=== PATIENT | female | born 1955 | race Caucasian/White ===

== ENCOUNTER → 2021-03-12 | Outpatient (CLI) | payer OTHER ==
[~2021-03-12] MED LIST: LISINOPRIL10 MG PO; METOPROLOL TART25 MG PO; PROBIOTIC1 EAC7 PO; TRAMADOL 50 MG50 MG PO; TRAZODONE HCL100 MG PO; TRIAMTERENE/HCT1 CA1 PO; VENLAFAXINE HC150 M1 PO; ZANAFLEX4 M2 PO
[2021-03-12 10:42] LABS: URINE BILIRUBIN NEGATIVE (Negative); URINE BLOOD NEGATIVE (Negative); URINE CLARITY CLEAR; URINE COLOR YELLOW; URINE GLUCOSE-RANDOM* NEGATIVE (Negative); URINE KETONES NEGATIVE (Negative); URINE LEUKOCYTES-REFLEX NEGATIVE (Negative); URINE NITRITE-REFLEX NEGATIVE (Negative); URINE PROTEIN (DIPSTICK) NEGATIVE (Negative); URINE UROBILINOGEN 0.2 E.U./dl (0.2-1.0)
[2021-03-12 10:50] LABS: HEMATOCRIT 41.2 % (37.0-47.0); MCH 31.5 pg (26.0-34.0); MCV 92.5 fL (80.0-100.0); RBC 4.46 mil/uL (4.20-5.00); RDW 13.4 % (10.5-14.5); WBC 5.4 thou/uL (4.0-11.0)
--- NOTE | 2021-03-12 10:50 | EKG ---
[place] [address] [facility] [place] [address] ELECTROCARDIOGRAM REPORT Name: TYLERSHEILA Room #: ZULEMA Pierre#: [id number] Admission: 03/12/21 Attend Phys: Gayle Resendez DO Discharge: Date of : 57 Report #: [id number] [facility] Test Date: 2021-03-12 Test Time: 10:37:54 Pat Name: SHEILA SCOTT Department: Room: Gender: F Recruitment Consultant: BERTA MARCUM : 1955 Requested By: Kvng Daily Order Number: [id number] MD: Berhane Barrios Measurements Intervals [place] Rate: 68 P: 46 OK: 179 QRS: -22 QRSD: 102 T: 33 QT: 432 QTc: 460 Interpretive Statements Sinus rhythm Borderline left axis deviation No previous ECG available for comparison Electronically Signed On 03-12-2021 10:50:42 [employer]PERVIS[employer] by Berhane Barrios [email or web address] <ELECTRONICALLY SIGNED> By: Berhane Barrios MD, [facility] 03/12/[address] [facility] Berhane Barrios MD, FACC /EPI
[2021-03-12 11:05] LABS: APTT 26.1 Seconds (24.5-32.8); INR 0.94; PROTIME 10.3 Seconds (10.5-12.1)
[2021-03-12 11:06] LABS: ALBUMIN 3.9 g/dL (3.4-5.0); CALCIUM 9.3 mg/dL (8.5-10.1); CREATININE 0.7 mg/dL (0.6-1.0); POTASSIUM 3.2 mmol/L (3.5-5.1); TOTAL BILIRUBIN 0.3 mg/dL (0.2-1.0); TOTAL PROTEIN 6.9 g/dL (6.4-8.2)
== END ==
LOC: PAC
PROVIDERS: Specialist; ATTEND Student in an Organized Health Care Education/Training Program
DX: I65.29 Occlusion and stenosis of unspecified carotid artery (principal)

== ENCOUNTER → 2021-03-15 | Outpatient (CLI) | payer OTHER | LOC: LAB 03-12 11:52 | PROVIDERS: ATTEND Student in an Organized Health Care Education/Training Program | DX: Z01.812 Encounter for preprocedural laboratory examination (principal); Z20.822 Contact with and (suspected) exposure to COVID-19 ==

== ENCOUNTER 2021-03-20 10:26 | Observation (INO) | payer OTHER ==
[~2021-03-20] VITALS: Ht 162.6 cm; Wt 77.2 kg
[2021-03-20 11:39] VITALS: BP 131/80
[2021-03-20 17:06] VITALS: BP 124/66
[2021-03-20 17:17] VITALS: BP 129/63
[2021-03-20 17:33] VITALS: BP 126/66
[2021-03-20 18:03] VITALS: BP 122/68
--- NOTE | 2021-03-20 18:05 | NUR ---
ASSUMED CARE OF PT AT 1700 FROM PACU. PT IS A/OX4 AND HAS NO COMPLAINTS AT THIS TIME. COMPLETED ADMISSION EDUCATION, HX AND SEPSIS. RNAMIRAH TO COMPLETE SYSTEM ASSESSMENT AND CARE PLAN. FALL PRECAUTIONS ARE IN PLACE. CALL LIGHT AND OTHER NEEDS ARE IN REACH. MEDS AND TX GIVEN NEEDED AND SCHEDULED. WILL MONITOPR AND NOTE ANY CHANGES.
[2021-03-20 19:30] VITALS: BP 106/56
--- NOTE | 2021-03-21 01:36 | NUR ---
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
[2021-03-21 07:18] VITALS: BP 102/58
--- NOTE | 2021-03-21 10:05 | NUR ---
ASSUMED PT CARE THIS AM. PT IS ALERT & ORIENTED X4. PT HAS IV SITE ON RFA SALINE LOCKED. PT IS UP STAND BY ASSIST. PT C/O OF PAIN AND GIVEN PAIN MEDICATION PER PT REQUEST. PT IS ON ROOM AIR. PT TOLERATED DIET AND MEDICATION WELL. PT HAS AQUACEL DRESSING ON THE BACK C/D/I. PT ON THE BED, BED ON THE LOWEST POSITION, SIDE RAILS UP, CALL LIGHT WITHIN REACH. WILL CONTINUE TO MONITOR PT. FOLLOW POC.
[2021-03-21 10:58] LABS: ABSOLUTE NEUTROPHILS 7.8 thou/uL (1.4-8.2); BASOPHILS 0.2 % (0.0-2.0); HEMATOCRIT 40.9 % (37.0-47.0); HEMOGLOBIN 13.2 gm/dL (12.0-15.0); LYMPHOCYTES 12.7 % (24.0-44.0); MCH 30.7 pg (26.0-34.0); MCHC 32.3 g/dL (28.0-37.0); MONOCYTES 4.7 % (1.0-8.0); PLATELET COUNT 246 thou/uL (150-400); POLYS 82.4 % (36.0-66.0); RDW 13.5 % (10.5-14.5); WBC 9.4 thou/uL (4.0-11.0)
[2021-03-21 11:19] LABS: CALCIUM 9.2 mg/dL (8.5-10.1); CREATININE 0.8 mg/dL (0.6-1.0); POTASSIUM 3.4 mmol/L (3.5-5.1)
[2021-03-21 13:51] VITALS: BP 102/58
== END 2021-03-21 14:15 | disposition home or self-care (01) ==
LOC: OR → 4S 14:51 → OR 14:52 → PRE 15:42 → EDSTATUS 15:43 → OR 15:44 → 4S 03-21 14:15
PROVIDERS: Hospitalist; ADMIT Specialist; ATTEND Specialist
DX: M48.061 Spinal stenosis, lumbar region without neurogenic claudication (principal); I10 Essential (primary) hypertension; M79.7 Fibromyalgia; F32.9 Major depressive disorder, single episode, unspecified; Z79.899 Other long term (current) drug therapy
CPT/HCPCS: 10102; 50010; 50101; 50402; 56525; 56528; 56532; 57103; 58457; 58567; 62110; 62900; 70005